=== PATIENT | male | born 1980 | race African-American/Black ===

== ENCOUNTER 2020-11-03 16:39 | Outpatient (REF) | payer MEDICARE, MEDICAID, SELFPAY | END 2020-11-03 16:40 | disposition home or self-care (01) | LOC: HO.LAB 16:39 | PROVIDERS: Visit Provider Internal Medicine | DX: Z20.822 Contact with and (suspected) exposure to COVID-19 (principal) | CPT/HCPCS: 36415; C9803; U0003 ==

== ENCOUNTER 2023-06-05 11:39 | Emergency (ER) | payer MEDICARE, MEDICAID, SELFPAY ==
--- NOTE | ~2023-06-05 | US_ITS ---
EXAMINATION: US ABDOMEN LIMITED CLINICAL INFORMATION: Epigastric pain. Question cholecystitis. COMPARISON: None available. TECHNIQUE: Real-time imaging of the right upper quadrant abdominal viscera. FINDINGS: PANCREAS: Normal. LIVER: Normal. The liver is normal in size. The liver contour is normal. Parenchymal echogenicity is normal. No focal hepatic lesion. There is no intrahepatic biliary duct dilatation seen. GALLBLADDER: The gallbladder is physiologically distended without wall thickening or pericholecystic fluid. Echogenic debris is identified near the gallbladder neck. 6 x 3 x 5 mm shadowing, nonmobile gallbladder wall echogenicity is seen. Tenderness was elicited during the study. COMMON BILE DUCT: Normal in caliber measuring 0.3 cm in diameter. RIGHT KIDNEY: Normal. No hydronephrosis. No renal calculi or focal parenchymal lesions. The kidney measures 9.6 cm in maximum dimension. FREE FLUID: None. US/US abdomen limited IMPRESSION: Echogenic intraluminal debris adjacent to the gallbladder neck, gallbladder polyp versus adherent 6 mm stone and tenderness elicited during study.
--- NOTE | ~2023-06-05 | CT_ITS ---
EXAMINATION: CT ABDOMEN AND PELVIS WITH CONTRAST CLINICAL INFORMATION: Abdominal pain. COMPARISON: None available. TECHNIQUE: Multidetector volumetric images were obtained from the superior aspect of the liver through the pubic symphysis following administration 85 mL of Omnipaque 350 intravenous contrast. Sagittal and coronal reformatted images were obtained on the technologist's workstation. Oral contrast: No This CT examination was performed using dose optimization techniques as appropriate, variously including the following: *Automated exposure control *Adjustment of mA and/or kV according to patient size (this includes techniques or standardized protocols for targeted exams where dose is matched to indication/reason for exam; i.e. extremities or head) *Use of iterative reconstruction technique DLP: 287 mGy-cm FINDINGS: LUNG BASES: The visualized lung bases are unremarkable. LIVER, GALLBLADDER, AND BILIARY TREE: The liver is normal in size, shape, and attenuation. No focal hepatic lesion or biliary ductal dilatation is present. The gallbladder is unremarkable with no evidence of radiopaque gallstones, gallbladder wall thickening, or obvious pericholecystic inflammatory changes. PANCREAS: Unremarkable. SPLEEN: Unremarkable. ADRENAL GLANDS: Unremarkable. KIDNEYS AND URETERS: The kidneys are normal in size, shape, and attenuation. No hydronephrosis, hydroureter, or calculi seen. No perinephric stranding. BLADDER: Unremarkable. GASTROINTESTINAL TRACT: There is mild apparent gastric fold thickening. The appendix is not confidently identified as a separate structure. There is no infiltrative change in the right lower quadrant. ABDOMINAL WALL: No significant hernia is appreciated. LYMPH NODES: Normal. VASCULAR: Unremarkable. PELVIC VISCERA: Unremarkable. OSSEOUS STRUCTURES: Unremarkable. CT/CT abdomen pelvis w IV con IMPRESSION: There appears to be gastric fold thickening which may be seen with gastritis. No other significant abnormality identified. The appendix is not seen. Fleischner guidelines were followed.
[2023-06-05 11:42] VITALS: BP 111/77; PULSE 64; RESP 19; TEMP 36.6; O2SAT 98; BMI 22.5
--- NOTE | 2023-06-05 11:42 | ED.GENADULT ---
HPI - General Adult General Chief complaint: Abdominal Pain Stated complaint: abdominal and chest discomfort Time Seen by Provider: 06/05/23 14:15 Source: patient Mode of arrival: ambulatory Limitations: no limitations History of Present Illness HPI narrative: 43 year old male no pmhx presenting with a chief complaint of abdominal pain. Patient points to the epigastric region when asked about his pain and states it radiates to his right shoulder. Patient explains this started Saturday after eating a large meal and has been occurring episodically since. He states that the pain does increase with meals. He is also experiencing some constipation. Patient called his primary care with concern about his pain and constipation, was given miralax, and was instructed to come to the ER if it did not resolve, little to no relief. Patient's last bowel movement was yesterday however he states it was small and darker than usual. Denies history of gallstones, kidney stones, diverticulitis or past abdominal surgeries. Denies alcohol or drug use. Denies chest pain or shortness of breath, fevers, chills. Related Data Previous Rx's Medication Instructions Recorded aluminum-mag hydroxide-simethicone 10 ml PO TID PRN indigestion #100 06/05/23 400 mg-400 mg-40 mg/5 mL oral susp mL (Maalox Maximum Strength) Allergies Allergy/AdvReac Type Severity Reaction Status Date / Time No Known Allergies Allergy Verified 06/05/23 11:42 Review of Systems Review of Systems: Constitutional : No Weight loss, No Fever, No Chills, No Fatigue, No Malaise ENT/Mouth : No sore throat, No Rhinorrhea Eyes: No Eye Pain, No Swelling, No Redness Cardiovascular : No Chest Pain, No SOB, No Dyspnea on Exertion, No Orthopnea, No Edema, No Palpitations Respiratory : No Cough, No Sputum, No Wheezing Gastrointestinal : +Epigastric pain and Constipation, + Nausea, + Vomiting, No Diarrhea, No Hematochezia, No Melena Genitourinary : No Dysuria, No Urinary Frequency, No Hematuria, Musculoskeletal : No joint pain, No Myalgias, No Joint Swelling Skin : No Skin Lesions, No rash Neuro : No Weakness, No Numbness, No Dizziness, No Headache Psych : No Anxiety/Panic, No Depression All other systems reviewed and are negative Yes all other systems are reviewed and are negative [facility] Past Medical History Attestation statement: The following information was validated with the patient. Source: old records reviewed and nursing notes reviewed Social History Social History Advance Directives: No Physical Exam ED Vital Signs: Vital Signs - 24 hr 06/05/23 11:42 06/05/23 16:49 Temperature 98 F 98.4 F Pulse Rate 64 62 Respiratory Rate 19 14 Blood Pressure 111/77 117/65 Pulse Oximetry 98 100 Oxygen Delivery Method Room Air Room Air BMI result Body Mass Index 22.5 VSS Appearance: Alert.? Oriented X3.? No acute distress.? Head: Normocephalic, atraumatic, no step-offs or deformities Eyes: Pupils equal, round and reactive to light.? CVS: Normal heart rate and rhythm.? Pulses normal.? Respiratory: No respiratory distress.? Breath sounds normal.? Abdomen: Soft, non distended. Tender to palpation in the epigastric region. Positive Das's sign. Negative Rosving and McBurneys. No rebound tenderness present. Skin: Skin warm and dry.? Normal skin color.? Normal skin turgor.? Extremities: No lower extremity edema.? No calf ttp. 5/5 strength to bilateral upper and lower extremities Back: No midline tenderness, no C-spine tenderness, full range of motion, no CVA tenderness bilaterally Neuro: Oriented X 3.? No motor deficit.? No sensory deficit. CN 2-12 intact Course Course Course Narrative: RME- 43 year old male presents for evaluation of epigastric abdominal pain and chest pain that is intermittent. Patient has seen his primary doctor and was prescribed tums and MiraLax. Patient also endorses constiaipation. Plan for labs and ekg. Reevaluation(s) Reevaluation #1: CBC appears to be within normal limits, a normocytic anemia is noted this is likely around patient's baseline. Chemistry unremarkable. Troponin negative, heart score 0, EKG nonischemic unlikely that this is ACS. Lack of shortness of breath makes PE unlikely, negative dimer. No signs of CHF, unlikely CHF or pulmonary edema. Ultrasound of abdomen with echogenic intraluminal degrees adjacent to the gallbladder neck, gallbladder polyp versus adherent 6 mm stone and tenderness elicited during study. I did discuss this case with surgery who states that as long as there is no leukocytosis and patient is not toxic this can be followed up with outpatient. Time: 16:14 Reevaluation #2: I did add a CT abdomen and pelvis to ensure not missing any intra-abdominal etiologies. However sign out will be given tonight provider Spencer LOWE Time: 16:15 Reevaluation #3: Patient with significant improvement in symptoms after receiving Maalox and Zofran. CT is without acute biliary etiology, no radiopaque gallstones or gallbladder wall thickening, gastric fold thickening noted which may be seen with gastritis. Most likely the etiology of his symptoms at this time. Reviewed these findings with patient. He is tolerating oral intake. Discussed bland diet, will send prescription for Maalox to pharmacy, outpatient follow-up with PCP/general surgery Time: 18:06 Medications Administered Discontinued Medications Generic Name Dose Route Start Last Admin Trade Name Freq PRN Reason Stop Dose Admin Al Hydroxide/Mg Hydroxide 30 ml 06/05/23 16:10 06/05/23 16:50 Magnesium Hydrox/Alum Hydrox 30 Ml Oral.Susp PO 06/05/23 16:11 30 ml ONCE ONE Administration Sodium Chloride 1,000 mls @ 999 mls/hr 06/05/23 16:15 06/05/23 17:53 Ns IV 06/05/23 17:15 Infused .Q1H1M BAN Infusion Iohexol 100 ml 06/05/23 17:13 06/05/23 17:13 Iohexol 350 Mg/Ml 100 Ml Infus..Btl IV 06/05/23 17:14 85 ml ONCE ONE Administration Ketorolac Tromethamine 30 mg 06/05/23 16:10 06/05/23 16:50 Ketorolac Tromethamine 15 Mg/Ml Vial IVPUSH 06/05/23 16:11 30 mg ONCE ONE Administration Ondansetron HCl 4 mg 06/05/23 16:30 06/05/23 16:50 Ondansetron Hcl 4 Mg/2 Ml Vial IVPUSH 06/05/23 16:31 4 mg ONCE ONE Administration Medical Decision Making Medical Decision Making [facility] Narrative: 1610 43 year old male presenting with intermittent epigastric pain x4 days Exam significant for epigastric tenderness and positive Das's sign. Negative Rosving, McBurneys, rebound tenderness. This is likely cholecystitis vs choledocolithiasis vs peptic ulcer vs constipation vs cholelithiasis. Unlikely colangitis given lack of fever or jaundice appearance. Unlikely appendicitis given the location of pain and no rebound tenderness and negative Rosving and McBurneys. I do not suspect hernia, obstruction, arterial occlusion, acute abdomen, or perforation based on the history and physical exam. No signs of obstruction. Other differentials include, GERD/gastritis vs viral ilness Plan: labs, imaging Differential Diagnosis Differential Diagnoses: The differential diagnosis associated with the presentation includes This is likely cholecystitis vs choledocolithiasis vs peptic ulcer vs constipation vs cholelithiasis . Unlikely colangitis given lack of fever or jaundice appearance. Unlikely appendicitis given the location of pain and no rebound tenderness and negative Rosving and McBurneys. I do not suspect hernia, obstruction, arterial occlusion, acute abdomen, or perforation based on the history and physical exam. No signs of obstruction. Other differentials include, GERD/gastritis vs viral ilness Admission/Observation Consideration of admission/observation: Escalation of care including admission/observation considered Not indicated. Lab Data MDM Lab Attestation statement: I reviewed the patient's lab results. 06/05/23 11:58 06/05/23 11:58 Labs: Lab Results 06/05/23 06/05/23 06/05/23 Range/Units 11:58 11:58 11:58 WBC 6.9 (4.8-10.8) X10*3/uL RBC 4.41 L (4.60-5.80) X10*6/uL Hgb 12.9 L (14.0-18.0) g/dl Hct 38.3 L (42.0-52.0) % MCV 86.8 (80.0-98.0) fL MCH 29.3 (27.0-33.0) pg MCHC 33.7 (31.0-36.0) g/dl RDW 12.1 (11.0-16.0) % Plt Count 188 (160-400) X10*3/uL MPV 8.8 L (9.4-12.4) fL Immature Gran % (Auto) 0.3 (0.0-0.4) % Neut % (Auto) 48.7 (45-73) % Lymph % (Auto) 27.6 (20-40) % [place] % (Auto) 21.2 H (2-11) % Eos % (Auto) 1.6 (0-4) % Baso % (Auto) 0.6 (0-2) % Lymph # (Auto) 1.9 (1.2-4.9) X10*3/uL [place] # (Auto) 1.5 H (0.1-1.2) X10*3/uL Eos # (Auto) 0.1 (0.0-0.4) X10*3/uL Baso # (Auto) 0.0 (0.0-0.2) X10*3/uL Abs Immat Gran (auto) 0.02 (0.00-0.03) X10*3/uL Absolute Neuts (auto) 3.4 (2.0-8.3) x10*3/uL Absolute Nucleated RBC 0.000 (0.0-0.012) X10*3/uL Nucleated RBC % (auto) 0.0 (0.0-0.2) /100WBC Smear Tech's Comments VERIFIED PT 12.4 (11.1-13.3) SEC INR 1.0 (0.9-1.1) APTT 33.1 (26.0-36.4) SEC D-Dimer High Sensitivty 151 NG/ML Sodium 138 (135-145) mmol/L Potassium 4.2 (3.3-5.1) mmol/L Chloride 107 (96-108) mmol/L Carbon Dioxide 25 (22-29) mmol/L Anion Gap 10 L (12-20) BUN 13 (9-16) mg/dL Creatinine 0.92 (0.5-1.4) mg/dL Estim Creat Clear Calc 99.1 Estimated GFR > 60 Random Glucose 90 (60-115) mg/dL Calcium 9.6 (8.4-10.2) mg/dL Total Bilirubin 0.8 (0.0-1.0) mg/dL AST 15 (5-37) U/L ALT 9 (0-40) U/L Alkaline Phosphatase 67 (39-117) U/L Troponin I High Sens (<3.5-35.0) ng/L Total Protein 7.5 (6.5-8.0) g/dL Albumin 4.2 (3.5-5.0) g/dL Lipase 18 (8-78) U/L 06/05/23 Range/Units 11:58 WBC (4.8-10.8) X10*3/uL RBC (4.60-5.80) X10*6/uL Hgb (14.0-18.0) g/dl Hct (42.0-52.0) % MCV (80.0-98.0) fL MCH (27.0-33.0) pg MCHC (31.0-36.0) g/dl RDW (11.0-16.0) % Plt Count (160-400) X10*3/uL MPV (9.4-12.4) fL Immature Gran % (Auto) (0.0-0.4) % Neut % (Auto) (45-73) % Lymph % (Auto) (20-40) % [place] % (Auto) (2-11) % Eos % (Auto) (0-4) % Baso % (Auto) (0-2) % Lymph # (Auto) (1.2-4.9) X10*3/uL [place] # (Auto) (0.1-1.2) X10*3/uL Eos # (Auto) (0.0-0.4) X10*3/uL Baso # (Auto) (0.0-0.2) X10*3/uL Abs Immat Gran (auto) (0.00-0.03) X10*3/uL Absolute Neuts (auto) (2.0-8.3) x10*3/uL Absolute Nucleated RBC (0.0-0.012) X10*3/uL Nucleated RBC % (auto) (0.0-0.2) /100WBC Smear Tech's Comments PT (11.1-13.3) SEC INR (0.9-1.1) APTT (26.0-36.4) SEC D-Dimer High Sensitivty NG/ML Sodium (135-145) mmol/L Potassium (3.3-5.1) mmol/L Chloride (96-108) mmol/L Carbon Dioxide (22-29) mmol/L Anion Gap (12-20) BUN (9-16) mg/dL Creatinine (0.5-1.4) mg/dL Estim Creat Clear Calc Estimated GFR Random Glucose (60-115) mg/dL Calcium (8.4-10.2) mg/dL Total Bilirubin (0.0-1.0) mg/dL AST (5-37) U/L ALT (0-40) U/L Alkaline Phosphatase (39-117) U/L Troponin I High Sens < 2.7 (<3.5-35.0) ng/L Total Protein (6.5-8.0) g/dL Albumin (3.5-5.0) g/dL Lipase (8-78) U/L Independent Interpretation I performed an independent interpretation of an: EKG and Ultrasound (US/US abdomen limited IMPRESSION: Echogenic intraluminal debris adjacent to the gallbladder neck, gallbladder polyp versus adherent 6 mm stone and tenderness elicited during study.) Radiology Impression Discussion of test interpretation with radiology: I have reviewed the radiologist's reading. Radiologist Impression: CT/CT abdomen pelvis w IV con IMPRESSION: There appears to be gastric fold thickening which may be seen with gastritis. ? No other significant abnormality identified. ? The appendix is not seen. ? Fleischner guidelines were followed. Critical Care Time Critical Care Time Critical Care Time: Yes Total Critical Care Time: 35 Attestation: I attest to this time spent taking care of the patient, obtaining history, physical, reviewing labs, imaging, speaking to my attending, speaking to specialist. Discharge Plan Discharge Clinical Impression: Constipation, Cholelithiasis, Gastritis Patient Disposition: Home, Self-Care Instructions: Gastritis (ED), Cholecystitis (ED), Constipation (ED) Additional Instructions: Use Maalox as needed for symptoms, Introduce a bland diet including crackers, bananas, rice, soup, toast, and boiled vegetables. This may progress to plain baked or boiled chicken or turkey. Avoid dairy products or foods high in fat or grease. Follow-up with your primary care provider this week. Return to the emergency department with new or worsening symptoms. Such as fevers, chills, chest pain, shortness of breath, nausea, vomiting, dizziness, headache, vision changes, lethargy In case of emergency call 911 Prescriptions: New alum-mag hydroxide-simeth [Maalox Maximum Strength] 400-400-40 mg/5 mL suspension 10 ml PO TID PRN (Reason: indigestion) Qty: 100 0RF Referrals: Lukas Robison MD [Primary Care Provider] -
--- NOTE | 2023-06-05 11:44 | ECG_ITS ---
Test Reason : pain Blood Pressure : / mmHG Vent. Rate : 062 BPM Atrial Rate : 062 BPM P-R Int : 122 ms QRS Dur : 092 ms QT Int : 382 ms P-R-T Axes : 068 066 044 degrees QTc Int : 387 ms Normal sinus rhythm with sinus arrhythmia Minimal voltage criteria for LVH, may be normal variant ( Sokolow-Mares ) Borderline ECG No previous ECGs available Referred By: Hussein Barbosa Electronically Signed By:JOANA PÉREZ
[2023-06-05 12:05] LABS: Basophils Percent Auto 0.6 % (0-2); Eosinophils Absolute Auto 0.1 X10*3/uL (0.0-0.4); Eosinophils Percent Auto 1.6 % (0-4); Hematocrit 38.3 % (42.0-52.0); Hemoglobin 12.9 g/dl (14.0-18.0); Imm Gran Abs Auto 0.02 X10*3/uL (0.00-0.03); Imm Gran Pct Auto 0.3 % (0.0-0.4); Lymphocytes Absolute Auto 1.9 X10*3/uL (1.2-4.9); Lymphocytes Percent Auto 27.6 % (20-40); MANUAL DIFF FLAG SCAN; Mean Corpuscular HGB Conc 33.7 g/dl (31.0-36.0); Mean Corpuscular Hemoglobin 29.3 pg (27.0-33.0); Mean Corpuscular Volume 86.8 fL (80.0-98.0); Mean Platelet Volume 8.8 fL (9.4-12.4); Monocytes Absolute Auto 1.5 X10*3/uL (0.1-1.2); Monocytes Percent Auto 21.2 % (2-11); Neutrophils Absolute Auto 3.4 x10*3/uL (2.0-8.3); Neutrophils Percent Auto 48.7 % (45-73); Platelet Count 188 X10*3/uL (160-400); Red Blood Count 4.41 X10*6/uL (4.60-5.80); Red Cell Distribution Width 12.1 % (11.0-16.0); SCAN SMEAR FLAG 1; White Blood Count 6.9 X10*3/uL (4.8-10.8)
[2023-06-05 12:09] LABS: Prothrombin Time 12.4 SEC (11.1-13.3)
[2023-06-05 12:12] LABS: Partial Thromboplastin Time 33.1 SEC (26.0-36.4)
[2023-06-05 12:18] LABS: Alanine Aminotransferase 9 U/L (0-40); Albumin Level 4.2 g/dL (3.5-5.0); Alkaline Phosphatase 67 U/L (39-117); Anion Gap 10 (12-20); Aspartate Amino Transferase 15 U/L (5-37); Bilirubin Total 0.8 mg/dL (0.0-1.0); Blood Urea Nitrogen 13 mg/dL (9-16); Calcium 9.6 mg/dL (8.4-10.2); Carbon Dioxide 25 mmol/L (22-29); Chloride 107 mmol/L (96-108); Creatinine Clr Calc Pharmacy 99.1; Estimated Glomerular Filt Rate > 60; Glucose Random 90 mg/dL (60-115); Lipase 18 U/L (8-78); Potassium 4.2 mmol/L (3.3-5.1); Sodium 138 mmol/L (135-145); Total Protein 7.5 g/dL (6.5-8.0)
[2023-06-05 12:26] LABS: Troponin-I High Sensitivity < 2.7 ng/L (<3.5-35.0)
[2023-06-05 12:28] LABS: SLIDE REVIEW VERIFIED
[2023-06-05 14:51] LABS: D Dimer High Sensitivity 151 NG/ML
[2023-06-05 16:49] VITALS: BP 117/65; PULSE 62; RESP 14; TEMP 36.9; O2SAT 100
[2023-06-05] MEDS: Ketorolac Tromethamine 15 MG/ML VIAL 30 MG IVPUSH (16:50)
[2023-06-05] MEDS: ondansetron HCL 4 MG/2 ML VIAL IVPUSH (16:50)
[2023-06-05] MEDS: Magnesium Hydrox/Alum Hydrox 30 ML ORAL.SUSP PO (16:50)
[2023-06-05] MEDS: 0.9 % Sodium Chloride 1,000 ML 999 ML IV (16:51)
[2023-06-05] MEDS: iohexoL 350 MG/ML 100 ML INFUS..BTL IV (17:13)
== END 2023-06-05 18:18 | disposition home or self-care (01) ==
PROVIDERS: Physician Assistant; Emergency Provider Emergency Medicine; PCP Internal Medicine
DX: K80.20 Calculus of gallbladder without cholecystitis without obstruction (principal); K29.70 Gastritis, unspecified, without bleeding; K59.00 Constipation, unspecified; R10.13 Epigastric pain
CPT/HCPCS: 36415; 74177; 76705; 80053; 83690; 84484; 85025; 85379; 85610; 85730; 93005; 96361; 96374; 96375; 99284; J1885; J2405; Q9967